=== PATIENT | female | born 1990 | race Two or more races ===

== ENCOUNTER 2017-09-09 17:27 | Emergency (ER) | payer MEDICAID, OTHER ==
[~2017-09-09] VITALS: Ht 144.8 cm; Wt 49.9 kg
[2017-09-09] MEDS ORDERED: TEGRETOL XR200 MG ORAL (17:44)
[2017-09-09] MEDS ORDERED: KEPPRA500 M4 ORAL (17:44)
[2017-09-09 18:00] VITALS: BP 136/77
[2017-09-09] MEDS ORDERED: Metoclopramide 10mg/2ml Inj IVP ONE (18:00)
[2017-09-09] MEDS ORDERED: Morphine Sulfate 4mg/ml Inj IVP ONE (18:00)
--- NOTE | 2017-09-09 18:24 | Emergency Room Report ---
History of Present Illness General Chief Complaint: Abdominal Pain Source: Patient Present Illness [facility] Patient present with complaints of right upper mid abdominal pain pain started 3 days ago and has been worsening Denies any dysuria frequency Denies any abdominal surgery Pain is 8/10 Denies any fevers or chills Patient does feel nauseous and did vomit Pain also does move to the right upper quadrant and flank area Allergies: Coded Allergies: PHENYTOIN (Verified Allergy, Unknown, 09/09/17) Patient History Past Medical History: see triage record Pertinent Family History: none Last Menstrual Period: last month Now: No Reviewed Nursing Documentation: PMH: Agreed, PSxH: Agreed Nursing Documentation-PMH Past Medical History: No History, Except For Hx Seizures: Yes Review of Systems All Other Systems: negative except mentioned in HPI Physical Exam Vital Signs Date Time Temp Pulse Resp B/P (MAP) Pulse Ox O2 Delivery O2 Flow Rate FiO2 09/09/17 17:41 98.2 58 18 129/58 99 Room Air Sp02 EP Interpretation: reviewed, normal General Appearance: well appearing, no apparent distress Head: normocephalic, atraumatic Eyes: bilateral eye PERRL, bilateral eye EOMI ENT: hearing grossly normal, normal pharynx, TMs + canals normal, uvula midline Neck: full range of motion, supple, no meningismus, no bony tend Respiratory: lungs clear, normal breath sounds, no rhonchi, no respiratory distress, no retraction, no accessory muscle use Cardiovascular #1: normal peripheral pulses, regular rate, rhythm, no edema, no gallop, no JVD, no murmur Gastrointestinal: normal bowel sounds, soft, no mass, no organomegaly, non- distended, no guarding, no hernia, no pulsatile mass, no rebound, tenderness - Tendernesses fairly diffuse on the right side upper quadrant lower abdomen Genitourinary: no CVA tenderness Musculoskeletal: normal inspection Neurologic: oriented x3, responsive, 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, motor strength/ tone normal, sensory intact Psychiatric: mood/affect normal Skin: normal color, no rash, warm/dry, palpation normal Lymphatic: normal inspection, no adenopathy Medical Decision Making Diagnostic Impression: Primary Impression: Obstructive uropathy Additional Impression: UTI (urinary tract infection) ER Course With the patient's history and examination, multiple differentials considered, including but not limited to , ectopic , ovarian torsion, gastritis, cholecystitis, pancreatitis, appendicitis Patient's CAT scan does reveal a right-sided obstructive uropathy There is also evidence of bacteria in the urine Patient provided further pain medication Pain still continues at approximately 5/10 Patient also provided with antibiotics Given the size and the presentation of the stone patient will require admission Labs Test 09/09/17 18:10 White Blood Count 10.8 K/UL (4.8-10.8) Red Blood Count 3.94 M/UL (4.20-5.40) Hemoglobin 12.3 G/DL (12.0-16.0) Hematocrit 37.4 % (37.0-47.0) Mean Corpuscular Volume 95 FL (80-99) Mean Corpuscular Hemoglobin 31.3 PG (27.0-31.0) Mean Corpuscular Hemoglobin Concent 33.0 G/DL (32.0-36.0) Red Cell Distribution Width 10.5 % (11.6-14.8) Platelet Count 207 K/UL (150-450) Mean Platelet Volume 5.6 FL (6.5-10.1) Neutrophils (%) (Auto) % (45.0-75.0) Lymphocytes (%) (Auto) % (20.0-45.0) Monocytes (%) (Auto) % (1.0-10.0) Eosinophils (%) (Auto) % (0.0-3.0) Basophils (%) (Auto) % (0.0-2.0) Differential Total Cells Counted 100 Neutrophils % (Manual) 90 % (45-75) Lymphocytes % (Manual) 5 % (20-45) Monocytes % (Manual) 5 % (1-10) Eosinophils % (Manual) 0 % (0-3) Basophils % (Manual) 0 % (0-2) Band Neutrophils 0 % (0-8) Platelet Estimate Adequate Platelet Morphology Normal Red Blood Cell Morphology Normal Urine Color Pale yellow Urine Appearance Slightly cloudy Urine pH 6 (4.5-8.0) Urine Specific [place] 1.020 (1.005-1.035) Urine Protein 1+ (NEGATIVE) Urine Glucose (UA) Negative (NEGATIVE) Urine Ketones 4+ (NEGATIVE) Urine Occult Blood 5+ (NEGATIVE) Urine Nitrite Negative (NEGATIVE) Urine Bilirubin Negative (NEGATIVE) Urine Urobilinogen Normal MG/DL (0.0-1.0) Urine Leukocyte Esterase 3+ (NEGATIVE) Urine RBC 20-30 /HPF (0 - 2) Urine WBC 15-20 /HPF (0 - 2) Urine Squamous Epithelial Cells Many /LPF (NONE/OCC) Urine Amorphous Sediment Few /LPF (NONE) Urine Bacteria Few /HPF (NONE) Urine HCG, Qualitative Negative Sodium Level 138 MMOL/L (136-145) Potassium Level 3.8 MMOL/L (3.5-5.1) Chloride Level 102 MMOL/L (98-107) Carbon Dioxide Level 27 MMOL/L (21-32) Anion Gap 9 mmol/L (5-15) Blood Urea Nitrogen 15 mg/dL (7-18) Creatinine 0.8 MG/DL (0.55-1.30) Estimat Glomerular Filtration Rate > 60 mL/min (>60) Glucose Level 124 MG/DL (74-106) Calcium Level 9.2 MG/DL (8.5-10.1) Total Bilirubin 0.2 MG/DL (0.2-1.0) Aspartate Amino Transf (AST/SGOT) 18 U/L (15-37) Alanine Aminotransferase (ALT/SGPT) 18 U/L (12-78) Alkaline Phosphatase 67 U/L (46-116) Total Protein 8.5 G/DL (6.4-8.2) Albumin 4.2 G/DL (3.4-5.0) Globulin 4.3 g/dL Albumin/Globulin Ratio 1.0 (1.0-2.7) Lipase 99 U/L (73-393) CT/MRI/US Diagnostic Results CT/MRI/US Diagnostic Results : Impression CT abdomen pelvis: Right-sided obstructive kidney stone approximately 5 mm proximal ureter Last Vital Signs Date Time Temp Pulse Resp B/P (MAP) Pulse Ox O2 Delivery O2 Flow Rate FiO2 09/09/17 17:41 98.2 58 18 129/58 99 Room Air Status: improved Disposition: [facility] Condition: Serious JOCELIN HILL D.O. Sep 09, 2017 18:24
[2017-09-09 18:47] LABS: MEAN CORPUSCULAR HEMOGLOBIN 31.3 PG (27.0-31.0); MEAN CORPUSCULAR VOLUME 95 FL (80-99); MEAN PLATELET VOLUME 5.6 FL (6.5-10.1); PLATELET COUNT 207 K/UL (150-450); RED BLOOD COUNT 3.94 M/UL (4.20-5.40); RED CELL DISTRIBUTION WIDTH 10.5 % (11.6-14.8); WHITE BLOOD COUNT 10.8 K/UL (4.8-10.8)
[2017-09-09 18:49] LABS: APPEARANCE,URINE SLIGHTLY CLOUDY; KETONES,URINE 4+ (NEGATIVE); LEUKOCYTE ESTERASE ,URINE 3+ (NEGATIVE); NITRITE,URINE NEGATIVE (NEGATIVE); PH,URINE 6 (4.5-8.0); PROTEIN,URINE 1+ (NEGATIVE); UROBILINOGEN,URINE NORMAL MG/DL (0.0-1.0)
[2017-09-09 19:00] VITALS: BP 105/63
[2017-09-09 19:01] LABS: AMORPHOUS SEDIMENT,UR FEW /LPF; BACTERIA,URINE FEW /HPF; RBC,URINE 20-30 /HPF (0 - 2); SQUAMOUS EPITHELIAL CELL,UR MANY /LPF (NONE/OCC); WBC,URINE 15-20 /HPF (0 - 2)
[2017-09-09 19:13] LABS: ANION GAP 9 mmol/L (5-15); CALCIUM 9.2 MG/DL (8.5-10.1); CARBON DIOXIDE 27 MMOL/L (21-32); CHLORIDE 102 MMOL/L (98-107); CREATININE 0.8 MG/DL (0.55-1.30); GLOMERULAR FILTRATION RATE > 60 mL/min (>60); POTASSIUM 3.8 MMOL/L (3.5-5.1); SODIUM 138 MMOL/L (136-145)
[2017-09-09 19:23] LABS: ALANINE AMINOTRANSFERASE 18 U/L (12-78); ASPARTATE AMINO TRANSFERASE 18 U/L (15-37); LIPASE 99 U/L (73-393); TOTAL PROTEIN 8.5 G/DL (6.4-8.2)
[2017-09-09 19:30] LABS: BAND NEUTROPHILS % (MANUAL) 0 % (0-8); BASOPHILS % (MANUAL) 0 % (0-2); EOSINOPHILS % (MANUAL) 0 % (0-3); LYMPHOCYTES % (MANUAL) 5 % (20-45); NEUTROPHILS % (MANUAL) 90 % (45-75); PLATELET ESTIMATE ADEQUATE; PLATELET MORPHOLOGY NORMAL; TOTAL CELLS COUNTED 100
[2017-09-09] MEDS ORDERED: Ketorolac 30mg Inj IV ONE (20:30)
[2017-09-09] MEDS ORDERED: cefTRIAXone 1 GM in NS 55 ML IVPB ONE (20:30)
[2017-09-09 21:27] VITALS: BP 105/55
[2017-09-09 23:15] VITALS: BP 110/77
[2017-09-10 01:20] VITALS: BP 105/67
[2017-09-10 01:21] VITALS: BP 105/67
--- NOTE | 2017-09-10 09:46 | Diagnostic Imaging Report ---
Indication: Right lower quadrant pain Comparison: None Technique: Contiguous helical CT images through the abdomen pelvis was performed with intravenous contrast only. Oral contrast was not administered. Axial, coronal and sagittal reconstructions were reformatted. CT Dose: Total DLP: 463 mGycm; Total CTDI volume 10.2 Findings: The liver is normal with no focal lesions. Portal vein is patent. Gallbladder appears normal with no repeat gallstones. No bile duct dilation present. Spleen is normal. Pancreas is normal. Adrenal glands are normal. There is moderate right-sided hydronephrosis and perinephric stranding. There is delayed enhancement of the right kidney. A 5 mm obstructing stone is seen in the proximal right ureter. Remainder of the right ureter appears normal. Left kidney and ureter appear normal. Urinary bladder is normal. No bladder calculi. No evidence of bowel obstruction. Evaluation of the colon is limited secondary to poor distention. No definite evidence for bowel related inflammatory changes. The appendix is not clearly identified. No evidence for pericecal inflammatory changes. No evidence for significant bowel dilation to suggest obstructive process. In the pelvis, there is a small amount of nonspecific free fluid in pelvis. A 2.2 cm left ovarian cyst is noted. No acute osseous abnormalities. Lung bases are clear. Impression: Hydronephrosis and perinephric stranding. There is delayed enhancement of the right kidney. Findings are due to a 5 mm obstructing stone in the proximal right ureter. Small amount of nonspecific free fluid in the pelvis. There is a 2.2 cm left ovarian cyst present. Appendix is not clearly identified. No evidence for pericecal inflammatory changes. No evidence of bowel obstruction.
== END 2017-09-10 01:21 | disposition short-term general hospital (02) ==
LOC: EDBEDREQ 21:26 → EMR 22:00
DX: N13.9 Obstructive and reflux uropathy, unspecified (principal); N39.0 Urinary tract infection, site not specified; N13.30 Unspecified hydronephrosis
CPT/HCPCS: 36415; 74177; 80053; 80299; 81003; 81025; 83690; 85007; 85025; 87086; 96374; 96375; 99284; J0696; J1885; J2270; J2765; Q9967